=== PATIENT | female | born 1965 | race Two or more races ===

== ENCOUNTER → 2018-09-25 | Outpatient (CLI) | payer OTHER ==
[~2018-09-25] MED LIST: GADOTERATE 7.5 MMOL/15ML VIAL. IVP ONE
--- NOTE | 2018-09-25 11:23 | RAD ---
BRAIN WO/W CONTRAST Date: 09/25/2018 9:45 AM Indication: Nocturnal headaches, night sweats Comparison: CT head 10/09/2006. Technique: Multiplanar multisequence MRI of the brain was performed with and without intravenous contrast using the standard protocol. 12 cc Dotarem contrast was administered intravenously during the exam. Findings: No acute infarct. No acute or chronic hemorrhage. The ventricles are normal in size and configuration without hydrocephalus. No abnormal enhancement. The scalp and calvarium are normal. The pituitary and sella are normal. No Chiari malformation. The visualized upper cervical spine is normal. The visualized orbits and globes are normal. Left maxillary sinus mucous retention cyst. Trace bilateral mastoid fluid. Normal flow voids within the vertebral, basilar, and internal carotid arteries indicating patency. IMPRESSION: 1. No acute infarct or hemorrhage. 2. No mass or abnormal enhancement. Electronically signed by: Otto Poole MD (09/25/2018 11:19 AM) [id number]
== END | disposition home or self-care (01) ==
LOC: MRI 08:52
PROVIDERS: ATTEND Physician Assistant Medical
DX: J34.1 Cyst and mucocele of nose and nasal sinus (principal)
CPT/HCPCS: 70553; A9575